=== PATIENT | female | born 1965 | race Caucasian/White ===

== ENCOUNTER → 2017-12-08 | Outpatient (CLI) | payer MEDICARE, OTHER ==
[~2017-12-08] MED LIST: ALBU3IS INH; ALBU90OI INH; ALBU90OI6 INH; ARIP15 PO; BUDE6HFA INH; Bentyl20 MG PO; CALCAVITD PO; CYAN500 PO; DELTASONE20 MG PO; DOCU100 PO; DULO60 PO; FURO20 PO; GABA300 PO; LAVAP17G PO; LEVO750 PO; METPRE4DP PO; NAPR500 PO; POTCHL10ER PO; PROBIOTIC1 EAC1 PO; TRAZ50 PO; Ultram50 MG PO; VITAMIN D31000 UNIT PO; Vesicare10 MG PO
== END ==
LOC: LAB 14:30 → LAB SHORT 14:30
DX: R30.0 Dysuria (principal); R31.9 Hematuria, unspecified
CPT/HCPCS: 87077; 87086; 87186

== ENCOUNTER 2018-05-23 10:03 | Emergency (ER) | payer MEDICARE, OTHER ==
[~2018-05-23] VITALS: Ht 157.5 cm; Wt 72.1 kg
[2018-05-23] MEDS ORDERED: Ultram50 MG PO (10:40)
== END 2018-05-23 10:50 | disposition home or self-care (01) ==
LOC: ER 10:03
DX: M25.511 Pain in right shoulder (principal); Z88.0 Allergy status to penicillin; Z88.8 Allergy status to other drugs, medicaments and biological substances; Z79.899 Other long term (current) drug therapy; Z79.52 Long term (current) use of systemic steroids; F17.210 Nicotine dependence, cigarettes, uncomplicated
CPT/HCPCS: 99282

== ENCOUNTER 2018-07-25 13:03 | Day surgery (SDC) | payer MEDICARE, OTHER ==
[~2018-07-25] VITALS: Ht 157.5 cm; Wt 70.4 kg
[~2018-07-25 13:03] MED LIST changes: +ARIP20 PO; +Aspirin EC81 MG PO; +ENOX100I SC; +HYDPAM25 PO; +MIRALAX17 GM PO; +Micro-K10 MEQ; +TORSE20 PO; +TRAZ100 PO; +VARE1 PO; +Vitamin D2000 UNIT PO; +WARF5 PO; +[UNRECOGNIZED DRUG - OTHER] PO
--- NOTE | 2018-07-25 13:37 | NUR ---
07/25/18 1337 Iram Blank ONE MISSED IV RH ONE GOOD IV RFA PT TOW
== END 2018-07-25 14:36 | disposition home or self-care (01) ==
LOC: ORSCSDS 13:03
PROVIDERS: Internal Medicine Gastroenterology
PROC: 0DBP8ZX Excision of Rectum, Via Natural or Artificial Opening Endoscopic, Diagnostic (ICD-10-PCS; principal; 2018-07-25 15:00)
PROC: 0DBN8ZX Excision of Sigmoid Colon, Via Natural or Artificial Opening Endoscopic, Diagnostic (ICD-10-PCS; principal; 2018-07-25 15:00)
DX: K92.1 Melena (principal); K62.1 Rectal polyp; K64.8 Other hemorrhoids; K57.30 Diverticulosis of large intestine without perforation or abscess without bleeding; B19.10 Unspecified viral hepatitis B without hepatic coma; J45.909 Unspecified asthma, uncomplicated; I48.91 Unspecified atrial fibrillation; G47.33 Obstructive sleep apnea (adult) (pediatric); F31.9 Bipolar disorder, unspecified; F17.210 Nicotine dependence, cigarettes, uncomplicated; Z79.82 Long term (current) use of aspirin; Z79.899 Other long term (current) drug therapy
CPT/HCPCS: 88305; J2710; J7120

== ENCOUNTER 2021-01-03 11:13 | Emergency (ER) | payer MEDICARE ==
[~2021-01-03] VITALS: Ht 160 cm; Wt 68.0 kg
[2021-01-03 12:18] LABS: BASOPHILS ABSOLUTE AUTO 0.05 K/mm3 (0.00-0.23); BASOPHILS PERCENT AUTO 1 % (0-2); EOSINOPHILS ABSOLUTE AUTO 0.35 K/mm3 (0.00-0.68); EOSINOPHILS PERCENT AUTO 7 % (0-6); Hematocrit 36.7 % (33.0-51.0); Hemoglobin 11.9 g/dL (11.5-16.0); IMMATURE GRAN ABSOLUTE AUTO 0.01 K/mm3 (0.00-0.10); IMMATURE GRAN PERCENT AUTO 0 % (0-1); LYMPHOCYTES ABSOLUTE AUTO 1.17 K/mm3 (0.84-5.20); LYMPHOCYTES PERCENT AUTO 24 % (21-46); MONOCYTES ABSOLUTE AUTO 0.57 K/mm3 (0.16-1.47); MONOCYTES PERCENT AUTO 12 % (4-13); Mean Corpuscular HGB 31.5 pg (26.0-34.0); Mean Corpuscular HGB Conc 32.4 g/dL (31.5-36.5); Mean Corpuscular Volume 97 fL (80-100); Mean Platelet Volume 9.5 fL (9.1-12.4); NEUTROPHILS PERCENT AUTO 56 % (41-73); Platelet Count 227 K/mm3 (150-400); RDW Coefficient Variation 13.2 % (11.7-14.2); Red Blood Cell Count 3.78 M/mm3 (3.80-5.20); White Blood Cell Count 4.85 K/mm3 (4.00-11.30)
[2021-01-03 12:31] LABS: Alanine Aminotransfer (ALT/SGP 19 U/L (12-78); Albumin, Blood 3.1 g/dL (3.4-5.0); Albumin/Globulin Ratio 0.9 (0.8-1.8); Alk Phos 84 U/L (50-136); Anion Gap 3 mmol/L (6-16); Aspartate Aminotrans (AST/SGOT 17 U/L (12-37); Bilirubin, Total 0.2 mg/dL (0.1-1.0); Blood Urea Nitrogen 22 mg/dL (8-24); Bun/Creatinine Ratio 27.2 (12.0-20.0); CO2, Blood 24 mmol/L (21-32); Calcium, Blood 8.2 mg/dL (8.5-10.1); Chloride, Blood 113 mmol/L (98-108); Creatinine, Blood 0.81 mg/dL (0.40-1.00); Globulin, Blood 3.6 g/dL (2.2-4.0); Glomerular Filtration Rate >60 (60-); Glucose, Blood 88 mg/dL (70-99); Potassium, Blood 4.4 mmol/L (3.5-5.5); Sodium, Blood 140 mmol/L (136-145); Total Protein, Blood 6.7 g/dL (6.4-8.2); Troponin I <0.015 ng/mL (0.000-0.040)
[2021-01-03 13:40] LABS: International Normalized Ratio 1.08; Prothrombin Time Results 11.6 Sec (9.7-11.5)
[2021-01-03 14:36] LABS: Source, Urine Clean Catch
[2021-01-03 14:43] LABS: Appearance, Urine Hazy (Clear); Bilirubin, Urine Neg (Neg); Blood, Urine 1+ (Neg); Color, Urine Yellow (P-Yellow); Glucose Qualitative, Urine Neg (Neg); Ketones, Urine Neg (Neg); Leukocyte Esterase, Urine 2+ (Neg); Nitrite, Urine Pos (Neg); Protein, Urine Neg (Neg); Urobilinogen, Urine NORM (Normal)
[2021-01-03] MEDS ORDERED: WARF5 PO (14:46)
[2021-01-03] MEDS ORDERED: Lovenox60 MG/0.6 SC (14:46)
[2021-01-03 14:56] LABS: Bacteria Many /hpf; Red Blood Cells, Urine Rare /hpf (0-2); Squamous Epithelial Cells Rare /hpf (Few)
[2021-01-03] MEDS ORDERED: CEFP200 PO (15:25)
== END 2021-01-03 16:10 | disposition home or self-care (01) ==
LOC: ER 11:13
PROVIDERS: Physician Assistant
DX: N39.0 Urinary tract infection, site not specified (principal); Z79.01 Long term (current) use of anticoagulants; Z88.0 Allergy status to penicillin; Z88.6 Allergy status to analgesic agent; Z79.899 Other long term (current) drug therapy
CPT/HCPCS: 36415; 70450; 71046; 80053; 81001; 84484; 85025; 85610; 87077; 87086; 87186; 93005; 93010; 96372; 99285-25; A9270; J1650

== ENCOUNTER 2021-04-15 10:53 | Day surgery (SDC) | payer MEDICARE ==
[~2021-04-15 10:53] MED LIST changes: +CEFP200 PO; +Lovenox60 MG/0.6 SC
[2021-04-15] MEDS ORDERED: HYDMOR2 PO (15:49)
[2021-04-15] MEDS ORDERED: MONT10T PO (15:50)
[2021-04-15] MEDS ORDERED: PROM25 PO (15:50)
[2021-04-15] MEDS ORDERED: IPRAT-ALBUT 0.5-3 ML INH (15:50)
[2021-04-15] MEDS ORDERED: LEVOTHYROXINE PO (15:52)
[2021-04-15] MEDS ORDERED: TIZA4 PO (15:52)
== END 2021-04-15 14:55 | disposition home or self-care (01) ==
LOC: ATC 10:53
DX: E05.00 Thyrotoxicosis with diffuse goiter without thyrotoxic crisis or storm (principal); Z88.0 Allergy status to penicillin; Z88.6 Allergy status to analgesic agent
CPT/HCPCS: 96365; J2930

== ENCOUNTER 2021-04-21 01:15 | Day surgery (SDC) | payer MEDICARE ==
[~2021-04-21 01:15] MED LIST changes: +HYDMOR2 PO; +IPRAT-ALBUT 0.5-3 ML INH; +LEVOTHYROXINE PO; +MONT10T PO; +PROM25 PO; +TIZA4 PO
== END 2021-04-21 15:00 | disposition home or self-care (01) ==
LOC: ATC 01:15
DX: E05.00 Thyrotoxicosis with diffuse goiter without thyrotoxic crisis or storm (principal); Z87.891 Personal history of nicotine dependence; Z95.2 Presence of prosthetic heart valve; Z79.01 Long term (current) use of anticoagulants
CPT/HCPCS: J2930

== ENCOUNTER 2021-04-28 01:29 | Day surgery (SDC) | payer MEDICARE | END 2021-04-28 15:25 | disposition home or self-care (01) | LOC: ATC 01:29 | DX: E05.00 Thyrotoxicosis with diffuse goiter without thyrotoxic crisis or storm (principal); Z88.0 Allergy status to penicillin; Z88.6 Allergy status to analgesic agent | CPT/HCPCS: 96365; J2930 ==

== ENCOUNTER 2021-05-05 02:41 | Day surgery (SDC) | payer MEDICARE | END 2021-05-05 15:03 | disposition home or self-care (01) | LOC: ATC 02:41 | DX: E05.00 Thyrotoxicosis with diffuse goiter without thyrotoxic crisis or storm (principal) | CPT/HCPCS: 96365; J2930 ==

== ENCOUNTER 2021-05-19 01:55 | Day surgery (SDC) | payer MEDICARE | END 2021-05-19 15:08 | disposition home or self-care (01) | LOC: ATC 01:55 | DX: E05.00 Thyrotoxicosis with diffuse goiter without thyrotoxic crisis or storm (principal); H53.2 Diplopia; E66.9 Obesity, unspecified; Z88.6 Allergy status to analgesic agent; Z88.0 Allergy status to penicillin; Z79.899 Other long term (current) drug therapy; Z79.01 Long term (current) use of anticoagulants; Z87.891 Personal history of nicotine dependence; Z95.4 Presence of other heart-valve replacement; Z68.31 Body mass index [BMI] 31.0-31.9, adult | CPT/HCPCS: 96365; J2930 ==

== ENCOUNTER 2021-05-26 01:07 | Day surgery (SDC) | payer MEDICARE | END 2021-05-26 14:54 | disposition home or self-care (01) | LOC: ATC 01:07 | DX: E05.00 Thyrotoxicosis with diffuse goiter without thyrotoxic crisis or storm (principal) | CPT/HCPCS: 96365; J2930 ==

== ENCOUNTER 2021-06-02 03:13 | Day surgery (SDC) | payer MEDICARE | END 2021-06-02 14:23 | disposition home or self-care (01) | LOC: ATC 03:13 | DX: E05.00 Thyrotoxicosis with diffuse goiter without thyrotoxic crisis or storm (principal); H53.2 Diplopia; Z79.01 Long term (current) use of anticoagulants; Z87.891 Personal history of nicotine dependence | CPT/HCPCS: 96365; J2930 ==

== ENCOUNTER 2021-06-16 02:53 | Day surgery (SDC) | payer MEDICARE | END 2021-06-16 14:16 | disposition home or self-care (01) | LOC: ATC 02:53 | DX: E05.00 Thyrotoxicosis with diffuse goiter without thyrotoxic crisis or storm (principal); H53.2 Diplopia; E66.9 Obesity, unspecified; Z88.6 Allergy status to analgesic agent; Z88.0 Allergy status to penicillin; Z87.891 Personal history of nicotine dependence; Z95.2 Presence of prosthetic heart valve; Z68.31 Body mass index [BMI] 31.0-31.9, adult | CPT/HCPCS: J2930 ==

== ENCOUNTER 2021-06-23 05:53 | Day surgery (SDC) | payer MEDICARE | END 2021-06-23 14:47 | disposition home or self-care (01) | LOC: ATC 05:53 | DX: E05.00 Thyrotoxicosis with diffuse goiter without thyrotoxic crisis or storm (principal); E66.9 Obesity, unspecified; Z68.31 Body mass index [BMI] 31.0-31.9, adult; Z88.0 Allergy status to penicillin; Z88.6 Allergy status to analgesic agent; Z79.01 Long term (current) use of anticoagulants; Z95.2 Presence of prosthetic heart valve; Z87.891 Personal history of nicotine dependence | CPT/HCPCS: J2930 ==

== ENCOUNTER 2021-06-30 00:37 | Day surgery (SDC) | payer MEDICARE | END 2021-06-30 14:25 | disposition home or self-care (01) | LOC: ATC 00:37 | DX: E05.00 Thyrotoxicosis with diffuse goiter without thyrotoxic crisis or storm (principal); E66.9 Obesity, unspecified; Z68.31 Body mass index [BMI] 31.0-31.9, adult; Z79.01 Long term (current) use of anticoagulants; Z88.6 Allergy status to analgesic agent; Z88.0 Allergy status to penicillin; Z87.891 Personal history of nicotine dependence | CPT/HCPCS: J2930 ==

== ENCOUNTER 2022-07-05 01:25 | Day surgery (SDC) | payer MEDICARE | END 2022-07-05 22:41 | disposition home or self-care (01) | LOC: WOUND 01:25 | DX: L03.116 Cellulitis of left lower limb (principal); Z88.0 Allergy status to penicillin; Z87.891 Personal history of nicotine dependence; Z88.5 Allergy status to narcotic agent | CPT/HCPCS: A9270 ==

== ENCOUNTER 2022-07-12 01:56 | Day surgery (SDC) | payer MEDICARE | END 2022-07-12 23:03 | disposition home or self-care (01) | LOC: WOUND 01:56 | DX: L03.116 Cellulitis of left lower limb (principal); S89.92XS Unspecified injury of left lower leg, sequela | CPT/HCPCS: G0463 ==

== ENCOUNTER 2022-07-30 02:44 | Day surgery (SDC) | payer MEDICARE | END 2022-07-30 22:51 | disposition home or self-care (01) | LOC: WOUND 02:44 | DX: I87.2 Venous insufficiency (chronic) (peripheral) (principal); L97.922 Non-pressure chronic ulcer of unspecified part of left lower leg with fat layer exposed | CPT/HCPCS: A9270 ==

== ENCOUNTER 2022-08-03 08:44 | Day surgery (SDC) | payer MEDICARE, OTHER | END 2022-08-03 22:41 | disposition home or self-care (01) | LOC: WOUND 08:44 | DX: L97.822 Non-pressure chronic ulcer of other part of left lower leg with fat layer exposed (principal); L03.116 Cellulitis of left lower limb; S89.92XS Unspecified injury of left lower leg, sequela; I87.2 Venous insufficiency (chronic) (peripheral) ==

== ENCOUNTER 2022-08-06 02:33 | Day surgery (SDC) | payer MEDICARE | END 2022-08-06 23:33 | disposition home or self-care (01) | LOC: WOUND 02:33 | DX: L97.822 Non-pressure chronic ulcer of other part of left lower leg with fat layer exposed (principal); L03.116 Cellulitis of left lower limb; S89.92XA Unspecified injury of left lower leg, initial encounter; I87.2 Venous insufficiency (chronic) (peripheral) ==

== ENCOUNTER 2022-08-13 01:47 | Day surgery (SDC) | payer MEDICARE | END 2022-08-13 22:38 | disposition home or self-care (01) | LOC: WOUND 01:47 | DX: I87.2 Venous insufficiency (chronic) (peripheral) (principal); L97.922 Non-pressure chronic ulcer of unspecified part of left lower leg with fat layer exposed | CPT/HCPCS: A9270 ==

== ENCOUNTER 2022-08-17 00:15 | Day surgery (SDC) | payer MEDICARE, OTHER | END 2022-08-17 22:49 | disposition home or self-care (01) | LOC: WOUND 00:15 | DX: L97.822 Non-pressure chronic ulcer of other part of left lower leg with fat layer exposed (principal); L03.116 Cellulitis of left lower limb; I87.2 Venous insufficiency (chronic) (peripheral); S89.92XA Unspecified injury of left lower leg, initial encounter ==

== ENCOUNTER 2022-08-20 01:37 | Day surgery (SDC) | payer MEDICARE | END 2022-08-20 22:33 | disposition home or self-care (01) | LOC: WOUND 01:37 | DX: I87.2 Venous insufficiency (chronic) (peripheral) (principal); L97.822 Non-pressure chronic ulcer of other part of left lower leg with fat layer exposed; L03.116 Cellulitis of left lower limb; S89.92XS Unspecified injury of left lower leg, sequela | CPT/HCPCS: A9270; G0463 ==

== ENCOUNTER 2022-08-27 01:03 | Day surgery (SDC) | payer MEDICARE | END 2022-08-28 22:37 | disposition home or self-care (01) | LOC: WOUND 01:03 | DX: L97.822 Non-pressure chronic ulcer of other part of left lower leg with fat layer exposed (principal); I87.2 Venous insufficiency (chronic) (peripheral); L03.116 Cellulitis of left lower limb ==

== ENCOUNTER 2022-09-03 00:03 | Day surgery (SDC) | payer MEDICARE | END 2022-09-03 22:35 | disposition home or self-care (01) | LOC: WOUND 00:03 | DX: L97.822 Non-pressure chronic ulcer of other part of left lower leg with fat layer exposed (principal); L03.116 Cellulitis of left lower limb; I87.2 Venous insufficiency (chronic) (peripheral); S89.92XS Unspecified injury of left lower leg, sequela; Z95.4 Presence of other heart-valve replacement | CPT/HCPCS: A9270; Q4133 ==

== ENCOUNTER 2022-09-10 01:37 | Day surgery (SDC) | payer MEDICARE | END 2022-09-10 23:06 | disposition home or self-care (01) | LOC: WOUND 01:37 | DX: L97.822 Non-pressure chronic ulcer of other part of left lower leg with fat layer exposed (principal); L03.116 Cellulitis of left lower limb; S89.92XS Unspecified injury of left lower leg, sequela; I87.2 Venous insufficiency (chronic) (peripheral) ==

== ENCOUNTER 2022-09-17 00:21 | Day surgery (SDC) | payer MEDICARE | END 2022-09-17 22:45 | disposition home or self-care (01) | LOC: WOUND 00:21 | DX: L97.822 Non-pressure chronic ulcer of other part of left lower leg with fat layer exposed (principal); L03.116 Cellulitis of left lower limb; S89.92XS Unspecified injury of left lower leg, sequela; I87.2 Venous insufficiency (chronic) (peripheral); Z79.01 Long term (current) use of anticoagulants ==

== ENCOUNTER 2022-10-01 01:39 | Day surgery (SDC) | payer MEDICARE | END 2022-10-01 23:03 | disposition home or self-care (01) | LOC: WOUND 01:39 | DX: L97.822 Non-pressure chronic ulcer of other part of left lower leg with fat layer exposed (principal); L03.116 Cellulitis of left lower limb; I87.2 Venous insufficiency (chronic) (peripheral); S89.92XS Unspecified injury of left lower leg, sequela | CPT/HCPCS: A9270 ==

== ENCOUNTER 2022-10-08 02:16 | Day surgery (SDC) | payer MEDICARE | END 2022-10-08 22:40 | disposition home or self-care (01) | LOC: WOUND 02:16 | DX: L97.822 Non-pressure chronic ulcer of other part of left lower leg with fat layer exposed (principal); I87.2 Venous insufficiency (chronic) (peripheral); L03.116 Cellulitis of left lower limb; S89.92XS Unspecified injury of left lower leg, sequela | CPT/HCPCS: A9270 ==

== ENCOUNTER 2022-10-15 01:26 | Day surgery (SDC) | payer MEDICARE | END 2022-10-15 22:51 | disposition home or self-care (01) | LOC: WOUND 01:26 | DX: L97.822 Non-pressure chronic ulcer of other part of left lower leg with fat layer exposed (principal); L03.116 Cellulitis of left lower limb; S89.92XS Unspecified injury of left lower leg, sequela; I87.2 Venous insufficiency (chronic) (peripheral) ==

== ENCOUNTER 2022-10-22 02:07 | Day surgery (SDC) | payer MEDICARE | END 2022-10-22 22:42 | disposition home or self-care (01) | LOC: WOUND 02:07 | DX: L97.822 Non-pressure chronic ulcer of other part of left lower leg with fat layer exposed (principal); Z95.4 Presence of other heart-valve replacement; Z79.01 Long term (current) use of anticoagulants; L03.116 Cellulitis of left lower limb; S89.92XS Unspecified injury of left lower leg, sequela; I87.2 Venous insufficiency (chronic) (peripheral) | CPT/HCPCS: A9270 ==

== ENCOUNTER 2022-10-29 00:02 | Day surgery (SDC) | payer MEDICARE | END 2022-10-29 22:51 | disposition home or self-care (01) | LOC: WOUND 00:02 | DX: L97.922 Non-pressure chronic ulcer of unspecified part of left lower leg with fat layer exposed (principal); L03.116 Cellulitis of left lower limb; S89.92XA Unspecified injury of left lower leg, initial encounter; I87.2 Venous insufficiency (chronic) (peripheral); X58.XXXA Exposure to other specified factors, initial encounter ==

== ENCOUNTER → 2023-02-08 | Outpatient (CLI) | payer MEDICARE ==
[2023-02-14 15:08] LABS: HPV 16 Negative (Negative); HPV 18 Negative (Negative); HPV OTHER HR TYPES Negative (Negative)
== END ==
LOC: LAB 16:37 → LAB SHORT 16:37
PROVIDERS: Student in an Organized Health Care Education/Training Program
DX: Z12.4 Encounter for screening for malignant neoplasm of cervix (principal)
CPT/HCPCS: 87624; G0145

== ENCOUNTER 2023-07-07 07:45 | Day surgery (SDC) | payer MEDICARE | END 2023-07-07 22:49 | disposition home or self-care (01) | LOC: WOUND 07:45 | DX: S81.801A Unspecified open wound, right lower leg, initial encounter (principal); X58.XXXA Exposure to other specified factors, initial encounter; I87.2 Venous insufficiency (chronic) (peripheral); L97.919 Non-pressure chronic ulcer of unspecified part of right lower leg with unspecified severity; I73.9 Peripheral vascular disease, unspecified; Z88.0 Allergy status to penicillin; Z87.891 Personal history of nicotine dependence; J44.9 Chronic obstructive pulmonary disease, unspecified; I50.9 Heart failure, unspecified | CPT/HCPCS: G0463 ==

== ENCOUNTER 2023-07-14 01:49 | Day surgery (SDC) | payer MEDICARE | END 2023-07-14 22:37 | disposition home or self-care (01) | LOC: WOUND 01:49 | DX: I87.2 Venous insufficiency (chronic) (peripheral) (principal); L97.919 Non-pressure chronic ulcer of unspecified part of right lower leg with unspecified severity; I73.9 Peripheral vascular disease, unspecified; Z51.81 Encounter for therapeutic drug level monitoring; Z95.2 Presence of prosthetic heart valve; Z79.01 Long term (current) use of anticoagulants; Z79.899 Other long term (current) drug therapy | CPT/HCPCS: 36416; 85610; G0463 ==

== ENCOUNTER 2023-07-21 04:47 | Day surgery (SDC) | payer MEDICARE | END 2023-07-21 22:40 | disposition home or self-care (01) | LOC: WOUND 04:47 | DX: S81.801A Unspecified open wound, right lower leg, initial encounter (principal); X58.XXXA Exposure to other specified factors, initial encounter; L97.819 Non-pressure chronic ulcer of other part of right lower leg with unspecified severity; I87.2 Venous insufficiency (chronic) (peripheral); I73.9 Peripheral vascular disease, unspecified | CPT/HCPCS: G0463 ==

== ENCOUNTER 2023-07-28 01:25 | Day surgery (SDC) | payer MEDICARE | END 2023-07-28 22:45 | disposition home or self-care (01) | LOC: WOUND 01:25 | DX: I87.2 Venous insufficiency (chronic) (peripheral) (principal); L97.919 Non-pressure chronic ulcer of unspecified part of right lower leg with unspecified severity; I73.9 Peripheral vascular disease, unspecified | CPT/HCPCS: G0463 ==

== ENCOUNTER 2023-08-05 01:17 | Day surgery (SDC) | payer MEDICARE | END 2023-08-05 22:41 | disposition home or self-care (01) | LOC: WOUND 01:17 | DX: L97.919 Non-pressure chronic ulcer of unspecified part of right lower leg with unspecified severity (principal); I87.2 Venous insufficiency (chronic) (peripheral); I73.9 Peripheral vascular disease, unspecified | CPT/HCPCS: G0463 ==

== ENCOUNTER 2023-08-12 03:22 | Day surgery (SDC) | payer MEDICARE | END 2023-08-12 23:14 | disposition home or self-care (01) | LOC: WOUND 03:22 | DX: S89.91XD Unspecified injury of right lower leg, subsequent encounter (principal); I87.2 Venous insufficiency (chronic) (peripheral); L97.919 Non-pressure chronic ulcer of unspecified part of right lower leg with unspecified severity; I73.9 Peripheral vascular disease, unspecified; X58.XXXD Exposure to other specified factors, subsequent encounter | CPT/HCPCS: G0463 ==

== ENCOUNTER 2023-08-19 01:20 | Day surgery (SDC) | payer MEDICARE | END 2023-08-19 22:39 | disposition home or self-care (01) | LOC: WOUND 01:20 | DX: L97.812 Non-pressure chronic ulcer of other part of right lower leg with fat layer exposed (principal); Z95.4 Presence of other heart-valve replacement; I87.2 Venous insufficiency (chronic) (peripheral); I73.9 Peripheral vascular disease, unspecified | CPT/HCPCS: A6213; G0463 ==

== ENCOUNTER 2023-08-25 10:41 | Day surgery (SDC) | payer MEDICARE ==
[~2023-08-25] VITALS: Ht 160 cm; Wt 79.1 kg
[~2023-08-25 10:41] MED LIST changes: +Lactated Ringer's 1,000 ML IV ONE; +propofoL 50 ML IV ONE
[2023-08-25] MEDS ORDERED: BUSP10 (11:15)
[2023-08-25] MEDS ORDERED: Lactated Ringer's 1,000 ML IV ONE (11:53)
[2023-08-25 12:40] VITALS: BP 122/60
== END 2023-08-25 12:43 | disposition home or self-care (01) ==
LOC: ORSCSDS 10:41
PROVIDERS: Specialist
PROC: 0DJD8ZZ Inspection of Lower Intestinal Tract, Via Natural or Artificial Opening Endoscopic (ICD-10-PCS; principal; 2023-08-25 12:00)
DX: Z12.11 Encounter for screening for malignant neoplasm of colon (principal); Z86.010 Personal history of colon polyps; K64.8 Other hemorrhoids; K57.30 Diverticulosis of large intestine without perforation or abscess without bleeding; F41.1 Generalized anxiety disorder; I48.91 Unspecified atrial fibrillation; E03.9 Hypothyroidism, unspecified; F31.9 Bipolar disorder, unspecified; E78.5 Hyperlipidemia, unspecified; G47.33 Obstructive sleep apnea (adult) (pediatric); J44.9 Chronic obstructive pulmonary disease, unspecified; Z87.891 Personal history of nicotine dependence; Z79.01 Long term (current) use of anticoagulants; Z79.899 Other long term (current) drug therapy
CPT/HCPCS: J2704; J7120

== ENCOUNTER 2023-08-26 00:44 | Day surgery (SDC) | payer MEDICARE ==
[~2023-08-26 00:44] MED LIST changes: +BUSP10; -Lactated Ringer's 1,000 ML IV ONE; -propofoL 50 ML IV ONE
== END 2023-08-26 22:39 | disposition home or self-care (01) ==
LOC: WOUND 00:44
DX: L97.812 Non-pressure chronic ulcer of other part of right lower leg with fat layer exposed (principal); I87.2 Venous insufficiency (chronic) (peripheral); Z95.4 Presence of other heart-valve replacement; Z79.01 Long term (current) use of anticoagulants; I73.9 Peripheral vascular disease, unspecified
CPT/HCPCS: G0463

== ENCOUNTER 2023-08-31 00:20 | Day surgery (SDC) | payer MEDICARE | END 2023-08-31 22:33 | disposition home or self-care (01) | LOC: WOUND 00:20 | DX: L97.919 Non-pressure chronic ulcer of unspecified part of right lower leg with unspecified severity (principal); I87.2 Venous insufficiency (chronic) (peripheral); I73.9 Peripheral vascular disease, unspecified | CPT/HCPCS: G0463 ==

== ENCOUNTER 2024-01-18 03:02 | Day surgery (SDC) | payer MEDICARE ==
[~2024-01-18 03:02] MED LIST changes: +IMITREX50 M1 PO; -LEVOTHYROXINE PO; +LEVSOD88 PO; +OXYB5 PO; +PRAM.125 PO; +Pentoxifylline400 MG PO; +TOPI50 PO; +VITAMIN D325 MC3 PO
== END 2024-01-18 22:59 | disposition home or self-care (01) ==
LOC: WOUND 03:02
DX: L97.822 Non-pressure chronic ulcer of other part of left lower leg with fat layer exposed (principal); I87.2 Venous insufficiency (chronic) (peripheral); I73.9 Peripheral vascular disease, unspecified
CPT/HCPCS: G0463

== ENCOUNTER 2024-01-25 01:57 | Day surgery (SDC) | payer MEDICARE | END 2024-01-25 22:46 | disposition home or self-care (01) | LOC: WOUND 01:57 | DX: L97.822 Non-pressure chronic ulcer of other part of left lower leg with fat layer exposed (principal); I87.2 Venous insufficiency (chronic) (peripheral); I73.9 Peripheral vascular disease, unspecified; I51.9 Heart disease, unspecified; Z79.01 Long term (current) use of anticoagulants; Z95.2 Presence of prosthetic heart valve; Z79.899 Other long term (current) drug therapy; Z48.812 Encounter for surgical aftercare following surgery on the circulatory system | CPT/HCPCS: 36415; 80048; G0463 ==

== ENCOUNTER 2024-02-01 02:21 | Day surgery (SDC) | payer MEDICARE | END 2024-02-02 22:46 | disposition home or self-care (01) | LOC: WOUND 02:21 | DX: L97.929 Non-pressure chronic ulcer of unspecified part of left lower leg with unspecified severity (principal); I87.2 Venous insufficiency (chronic) (peripheral); I73.9 Peripheral vascular disease, unspecified | CPT/HCPCS: G0463 ==